=== PATIENT | female | born 1975 ===

== ENCOUNTER 2017-05-22 07:56 | Emergency (ER) | payer OTHER ==
[2017-05-22 08:05] VITALS: BMI 28.1
[2017-05-22 08:07] VITALS: BP 115/75; PULSE 60; RESP 16; TEMP 97.5; O2SAT 100
[2017-05-22] MEDS ORDERED: Sodium Chloride 0.9% 1,000 ML IV STA (08:22)
[2017-05-22 08:57] LABS: BASO # 0.1 K/uL (0.0-0.2); EOS # 0.1 K/uL (0.0-0.7); EOS % 1.7 % (0.0-4.0); LYMPH # 2.6 K/uL (1.0-4.3); LYMPH % 33.2 % (20.0-40.0); MEAN CELL VOLUME 87.3 fl (81.0-99.0); MEAN CORPUSCULAR HEMOGLOBIN 29.2 pg (27.0-31.0); MEAN CORPUSCULAR HGB CONC 33.4 g/dL (33.0-37.0); MONO # 0.5 K/uL (0.0-0.8); MONO % 5.9 % (0.0-10.0); NEUT # 4.5 K/uL (1.8-7.0); NEUT % 58.2 % (50.0-75.0); RED CELL DISTRIBUTION WIDTH 12.9 % (11.5-14.5); WHITE BLOOD COUNT 7.7 K/uL (4.8-10.8)
--- NOTE | 2017-05-22 08:57 | ED PDOC ---
HPI: Female Pain Time Seen by Provider: 05/22/17 08:05 Chief Complaint (Nursing): Female Genitourinary Chief Complaint (Provider): Pelvic pain, vaginal bleeding History Per: Patient History/Exam Limitations: no limitations Onset/Duration Of Symptoms: Days (x 3) Current Symptoms Are (Timing): Still Present Additional Complaint(s): Antonina Coronel is a 41-year-old female who presents to the ED for 3 day history of pelvic pain. She reports that she usually menstruates during the 1st week of the month, but last month experienced two episodes of vaginal bleeding 10 days apart. Patient has currently had vaginal bleeding for 3 days, which is described as more bleeding than her usual period. Denies any associated dysuria , chest pain, shortness of breath, dizziness, fever, nausea, vomiting, or diarrhea. Took Tylenol and Motrin yesterday without relief. No medications taken this morning. PMD: None provided Abnormal Vaginal Bleeding: Yes Past Medical History Reviewed: Historical Data, Nursing Documentation, Vital Signs Vital Signs: Last Vital Signs Temp 97.5 F L 05/22/17 08:05 Pulse 60 05/22/17 08:05 Resp 16 05/22/17 08:05 BP 115/75 05/22/17 08:05 Pulse Ox 100 05/22/17 08:05 - Medical History PMH: No Chronic Diseases Denies: Migraine, Chronic Kidney Disease - Surgical History Other surgeries: D&C x3 - Family History Family History: States: Unknown Family Hx - Social History Current smoker - smoking cessation education provided: No Alcohol: None Drugs: Denies - Immunization History Hx Tetanus Toxoid Vaccination: No Hx Influenza Vaccination: No Hx Pneumococcal Vaccination: No - Home Medications Home Medications: Ambulatory Orders Medication Instructions Recorded Cholecalciferol [Vitamin D] 1,000 iu PO DAILY 06/18/15 Famotidine [Pepcid] 20 mg PO BID #30 tab 06/18/15 Ibuprofen [Motrin] 600 mg PO TID 7 Days tab 05/22/17 - Allergies Allergies/Adverse Reactions: Allergies Allergy/AdvReac Type Severity Reaction Status Date / Time nitrofurantoin Allergy RASH Verified 07/30/16 17:54 Review of Systems ROS Statement: Except As Marked, All Systems Reviewed And Found Negative Constitutional: Negative for: Fever, Chills Cardiovascular: Negative for: Chest Pain Respiratory: Negative for: Shortness of Breath Gastrointestinal: Negative for: Nausea, Vomiting, Diarrhea Genitourinary Female: Positive for: Vaginal Bleeding, Pelvic Pain. Negative for : Dysuria Neurological: Negative for: Dizziness Physical Exam - Reviewed Nursing Documentation Reviewed: Yes Vital Signs Reviewed: Yes - Physical Exam Appears: Positive for: Non-toxic, No Acute Distress Head Exam: Positive for: ATRAUMATIC, NORMAL INSPECTION, NORMOCEPHALIC Skin: Positive for: Normal Color, Warm, Dry Eye Exam: Positive for: EOMI, Normal appearance, PERRL Neck: Positive for: Normal, Painless ROM, Supple Cardiovascular/Chest: Positive for: Regular Rate, Rhythm. Negative for: Murmur Respiratory: Positive for: Normal Breath Sounds. Negative for: Accessory Muscle Use, Respiratory Distress Pulses-Radial (L): 2+ Pulses-Radial (R): 2+ Gastrointestinal/Abdominal: Positive for: Soft, Tenderness (mild tenderness across lower pelvic region) Back: Positive for: Normal Inspection. Negative for: Vertebral Tenderness Extremity: Positive for: Normal ROM. Negative for: Pedal Edema, Calf Tenderness , Deformity Neurologic/Psych: Positive for: Alert, Oriented (x3). Negative for: Motor/ Sensory Deficits - Laboratory Results Result Diagrams: 05/22/17 08:47 05/22/17 08:47 Urine POC: Negative - ECG O2 Sat by Pulse Oximetry: 100 (RA) Pulse Ox Interpretation: Normal - CT Scan/US Transvaginal US Other Rad Studies (CT/US): Read By Radiologist, Radiology Report Reviewed Other Rad Interpretation: Multiple small uterine fibroids. Otherwise unremarkable examination. - Progress ED Course And Treament: 1045: Stable. AAOx3. Pain free. Tolerated PO. Fu with obgyn. Medical Decision Making Medical Decision Making: Time: 8:21 Initial Plan: * BMP * CBC w/ differential * Urine * Urine dip * NS IV 1000 ml at 1000 mls/hr * Pending Transvaginal US Scribe Attestation: Documented by Kendy Jimenez, acting as a scribe for Henrique Verdin MD Provider Scribe Attestation: All medical record entries made by the Scribe were at my direction and personally dictated by me. I have reviewed the chart and agree that the record accurately reflects my personal performance of the history, physical exam, medical decision making, and the department course for this patient. I have also personally directed, reviewed, and agree with the discharge instructions and disposition. Disposition - Clinical Impression Clinical Impression: Fibroids - Patient ED Disposition Is Patient to be Admitted: No Counseled Patient/Family Regarding: Studies Performed, Diagnosis, Need For Followup, Rx Given - Disposition [facility] Disposition: Routine/Home Disposition Time: 10:46 Condition: STABLE Additional Instructions: Return if not better in 3 days. Prescriptions: Ibuprofen [Motrin] 600 mg PO TID 7 Days tab Instructions: Uterine Fibroids (ED) Forms: [facility] ED School/Work Excuse
[2017-05-22 09:02] LABS: BLOOD UREA NITROGEN 12 mg/dl (7-17); CALCIUM 8.4 mg/dL (8.4-10.2); CARBON DIOXIDE 27 mmol/L (22-30); CHLORIDE 104 mmol/L (98-107); GFR AFRICAN-AMERICAN > 60; GLUCOSE,RANDOM 88 mg/dL (65-105); POTASSIUM 3.7 MMOL/L (3.6-5.0); SODIUM 140 mmol/l (132-148)
--- NOTE | 2017-05-22 09:57 | US ---
HISTORY: vaginal bleeding COMPARISON: None available. TECHNIQUE: Transvaginal FINDINGS: UTERUS: Measures 9.7 x 6.6 x 5.4 cm. Heterogeneous echotexture multiple uterine fibroids. Lower uterine segment/ cervical myoma, 4 x 8 x 9 mm. Anterior intramural fibroid, 2.6 x 1.6 x 2.6 cm. Posterior subserosal lower uterine segment fibroid, 0.9 x 1.0 by 1.1 cm. ENDOMETRIUM: Measures 11 mm in diameter. Unremarkable. CERVIX: No cervical abnormality identified. RIGHT OVARY: Measures 3.1 x 3.2 x 1.7 cm. No solid mass. Normal flow. LEFT OVARY: Measures 3.1 x 2.8 x 1.4 cm. No solid mass. Normal flow. FREE FLUID: No significant free fluid noted. OTHER FINDINGS: None. IMPRESSION: Multiple small uterine fibroids. Otherwise unremarkable examination.
== END 2017-05-22 11:37 | disposition home or self-care (01) ==
LOC: H.ER 07:56
DX: D25.9 Leiomyoma of uterus, unspecified (principal)
CPT/HCPCS: 76830; 80048; 81025; 85025; 99283; J7040